=== PATIENT | female | born 1980 | race Caucasian/White ===

== ENCOUNTER → 2017-08-16 | Outpatient (CLI) | payer BC | LOC: COL.RAD 11:43 | DX: D41.02 Neoplasm of uncertain behavior of left kidney (principal); N28.89 Other specified disorders of kidney and ureter ==

== ENCOUNTER → 2018-01-13 | Outpatient (REF) ==
[2018-01-13 18:40] LABS: THYROID STIMULATING HORMONE 0.862 uIU/mL (0.465-4.680)
== END ==
LOC: ZLAB.WCH 17:54
PROVIDERS: Internal Medicine
DX: Z01.89 Encounter for other specified special examinations (principal)

== ENCOUNTER → 2019-12-22 | Outpatient (CLI) | payer BC | LOC: COL.RAD 06:43 | DX: R10.30 Lower abdominal pain, unspecified (principal) | CPT/HCPCS: A9541 ==

== ENCOUNTER → 2019-12-29 | Outpatient (CLI) | payer BC | LOC: COL.RAD 10:21 | DX: R10.30 Lower abdominal pain, unspecified (principal); R19.7 Diarrhea, unspecified; R19.4 Change in bowel habit; R11.2 Nausea with vomiting, unspecified ==

== ENCOUNTER → 2020-01-04 | Outpatient (CLI) | payer BC | LOC: COL.RAD 09:49 | DX: R10.30 Lower abdominal pain, unspecified (principal); R19.7 Diarrhea, unspecified; R19.4 Change in bowel habit; R11.2 Nausea with vomiting, unspecified | CPT/HCPCS: A9537; J2805 ==